=== PATIENT | male | born 1980 | race Caucasian/White ===

== ENCOUNTER 2024-05-09 09:21 | Inpatient (IN) | payer SELFPAY ==
[~2024-05-09] VITALS: Ht 170.2 cm; Wt 72.6 kg
[2024-05-09] MEDS: KETOROLAC 30MG/ML VIAL IV STA (09:48)
[2024-05-09] MEDS: ONDANSETRON HCL 4MG/2ML INJ IV STA (09:48)
[2024-05-09] MEDS: SODIUM CHLORIDE 0.9% 1,000 ML IV ONE (09:48)
[2024-05-09 09:56] LABS: BASOPHILS % 0.6 % (0.0-2.0); EOSINOPHILS % 0.4 % (0.0-5.0); HEMATOCRIT. 38.7 % (42.0-52.0); LYMPHOCYTES % 12.6 % (20.0-50.0); MEAN CORPUSCULAR HEMOGLOBIN 30.5 pg (28.0-32.0); MEAN CORPUSCULAR HGB CONC 33.7 g/dL (31.0-37.0); MEAN CORPUSCULAR VOLUME 90.4 fL (80.0-94.0); MEAN PLATELET VOLUME 8.9 fl (7.4-10.4); MONOCYTES % 5.1 % (2.0-8.0); NEUTROPHILS % 81.3 % (40.0-76.0); PLATELET 122 x1000/uL (130-400); RED BLOOD CELL COUNT 4.28 mill/uL (4.7-6.1); RED CELL DISTRIBUTION WIDTH 14.1 % (11.6-14.6); WHITE BLOOD COUNT 8.9 x1000/uL (4.5-11.0)
[2024-05-09 10:11] LABS: CHLORIDE 103 mEq/L (98-107); POTASSIUM 3.8 mEq/L (3.5-5.1); SODIUM 140 mEq/L (136-145)
[2024-05-09 10:16] LABS: CALCIUM 9.9 mg/dL (8.7-10.4)
[2024-05-09 10:17] LABS: CARBON DIOXIDE 28 mEq/L (21-32)
[2024-05-09 10:22] LABS: CREATININE 0.8 mg/dL (0.6-1.3); GLUCOSE 161 mg/dL (70-105); UREA NITROGEN BLOOD 11 mg/dL (9-23)
[2024-05-09 10:33] LABS: TROPONIN I HIGH SENSITIVITY < 4 ng/L (3.0-53)
[2024-05-09] MEDS ORDERED: CLONIDINE 0.1MG TABLET PO PRN (11:45)
[2024-05-09] MEDS ORDERED: DOCUSATE SODIUM 100MG CAPSULE PO PRN (11:45)
[2024-05-09] MEDS ORDERED: ONDANSETRON HCL 4MG/2ML INJ IV PRN (11:45)
[2024-05-09] MEDS ORDERED: ACETAMINOPHEN 325MG TABLET PO PRN ×2 (11:45)
[2024-05-09] MEDS ORDERED: GUAIFENESIN 200MG/10ML SUGAR FREE UDC PO PRN (11:45)
[2024-05-09] MEDS ORDERED: IPRATROPIUM/ALBUTEROL 0.5-3(2.5)MG/3ML NEB HHN PRN (11:45)
[2024-05-09] MEDS ORDERED: DEXTROSE 50% WATER 50ML SYRINGE IV PRN (12:30)
[2024-05-09] MEDS ORDERED: LORAZEPAM 2MG/ML INJ IV PRN ×2 (12:45→21:30)
[2024-05-09] MEDS: BLOOD SUGAR DIAGNOSTIC STRIP TEST SCH (13:00)
[2024-05-09] MEDS: INSULIN LISPRO 100 UNITS/ML SUBCUT SCH (13:20)
[2024-05-09 13:25] VITALS: BP 124/82; PULSE 78; RESP 18; TEMP 37.1
[2024-05-09] MEDS: MVI, ADULT NO.1 10 ML, FOLIC ACID 1 MG, THIAMINE HCL 100 MG in SODIUM CHLORIDE 0.9% 1,0... IV ONE (14:00)
[2024-05-09 14:48] LABS: BILIRUBIN DIRECT 0.2 mg/dL (<=3.0); BILIRUBIN TOTAL 0.6 mg/dL (0.1-1.0); PHOSPHORUS 3.4 mg/dL (2.5-4.9)
[2024-05-09] MEDS ORDERED: KETOROLAC 15MG/ML VIAL IV PRN (18:45)
[2024-05-09 18:49] LABS: AMMONIA 27 uMol/L (<32)
[2024-05-09 20:00] VITALS: BP 145/77; PULSE 74; RESP 15; TEMP 36.6; O2SAT 96
[2024-05-09] MEDS: MAGNESIUM 2 G PREMIX 50 ML IV NR (21:03)
[2024-05-09] MEDS: SUCRALFATE 1G TABLET PO SCH (21:04)
[2024-05-09] MEDS: PANTOPRAZOLE 40MG DR TABLET PO SCH (21:04)
[2024-05-09] MEDS ORDERED: DEXT 5%/0.45% NACL 1000ML 1,000 ML IV SCH (22:00)
[2024-05-10] VITALS: BP 132/68; PULSE 65; RESP 18; TEMP 36.5; O2SAT 98
[2024-05-10 04:00] VITALS: BP 133/69; PULSE 63; RESP 18; TEMP 36.3; O2SAT 98
[2024-05-10 06:18] LABS: PROTHROMBIN TIME 11.6 sec (9.6-11.0)
[2024-05-10 06:41] LABS: CHLORIDE 107 mEq/L (98-107); POTASSIUM 3.8 mEq/L (3.5-5.1); SODIUM 142 mEq/L (136-145)
[2024-05-10 06:43] LABS: CALCIUM 9.1 mg/dL (8.7-10.4); CARBON DIOXIDE 27 mEq/L (21-32)
[2024-05-10 06:46] LABS: TRIGLYCERIDE 85 mg/dL (0-150)
[2024-05-10 06:48] LABS: CREATININE 0.8 mg/dL (0.6-1.3); GLUCOSE 85 mg/dL (70-105); UREA NITROGEN BLOOD 11 mg/dL (9-23)
[2024-05-10 06:49] LABS: ALANINE AMINOTRANSFERASE 22 IU/L (10-49); LDL CHOLESTEROL 98 mg/dL (5-100)
[2024-05-10 06:50] LABS: ALBUMIN 3.7 g/dL (3.2-4.8); ASPARTATE AMINOTRANSFERASE 24 IU/L (<34); BILIRUBIN DIRECT 0.3 mg/dL (<=3.0); CHOLESTEROL 145 mg/dL (<200); HDL CHOLESTEROL 34 mg/dL (>55); PROTEIN TOTAL 6.5 g/dL (6.0-8.3)
[2024-05-10 06:59] LABS: HEPATITIS B SURFACE ANTIGEN NEGATIVE (Negative)
[2024-05-10 07:20] LABS: HEPATITIS A AB IGM NEGATIVE (Negative)
[2024-05-10 07:21] LABS: HEPATITIS B CORE AB IGM NEGATIVE (Negative); HEPATITIS C AB NON REACTIVE (Neg) (Negative)
[2024-05-10 07:28] LABS: BASOPHILS % 1.1 % (0.0-2.0); EOSINOPHILS % 1.8 % (0.0-5.0); HEMOGLOBIN. 12.9 g/dL (14.0-18.0); LYMPHOCYTES % 24.8 % (20.0-50.0); MEAN CORPUSCULAR HEMOGLOBIN 31.5 pg (28.0-32.0); MEAN CORPUSCULAR HGB CONC 34.7 g/dL (31.0-37.0); MEAN CORPUSCULAR VOLUME 90.8 fL (80.0-94.0); MEAN PLATELET VOLUME 9.9 fl (7.4-10.4); MONOCYTES % 7.7 % (2.0-8.0); NEUTROPHILS % 64.6 % (40.0-76.0); PLATELET 119 x1000/uL (130-400); RED BLOOD CELL COUNT 4.08 mill/uL (4.7-6.1); RED CELL DISTRIBUTION WIDTH 13.6 % (11.6-14.6); WHITE BLOOD COUNT 7.2 x1000/uL (4.5-11.0)
[2024-05-10 08:00] VITALS: BP 150/81; PULSE 60; RESP 18; TEMP 35.9; O2SAT 100
[2024-05-10] MEDS: THIAMINE HCL 100MG TABLET PO SCH (08:14)
[2024-05-10] MEDS: FOLIC ACID 1MG TABLET PO SCH (08:14)
[2024-05-10] MEDS ORDERED: PANTOPRAZOLE SODIUM 40 MG/VIAL IV SCH (09:00)
[2024-05-10 12:00] VITALS: BP 131/82; PULSE 65; RESP 18; TEMP 36.3; O2SAT 100
[2024-05-10 16:00] VITALS: BP 137/76; PULSE 64; RESP 19; TEMP 36.2; O2SAT 100
[2024-05-11 04:00] VITALS: BP 148/75; PULSE 64; RESP 18; TEMP 36.2; O2SAT 98
[2024-05-11 08:00] VITALS: BP 128/80; PULSE 72; RESP 18; TEMP 36.7; O2SAT 100
[2024-05-11 09:36] VITALS: BP 128/80; PULSE 72; TEMP 98; O2SAT 100
== END 2024-05-11 11:46 | disposition home or self-care (01) | DRG 241 ==
LOC: ER 09:21 → 7EST 11:20 → EDBEDREQ 11:25 → EDBEDREQSVC 11:25
PROVIDERS: ADMIT Internal Medicine; ATTEND Internal Medicine
DX: K29.71 Gastritis, unspecified, with bleeding (principal); D64.9 Anemia, unspecified; F10.10 Alcohol abuse, uncomplicated; E11.65 Type 2 diabetes mellitus with hyperglycemia; F17.210 Nicotine dependence, cigarettes, uncomplicated; K21.9 Gastro-esophageal reflux disease without esophagitis; F41.0 Panic disorder [episodic paroxysmal anxiety]; R16.1 Splenomegaly, not elsewhere classified; Y90.9 Presence of alcohol in blood, level not specified; I51.7 Cardiomegaly; Z59.00 Homelessness unspecified; Z90.01 Acquired absence of eye; Y99.8 Other external cause status
CPT/HCPCS: 36415; 71045; 76700; 80048; 80061; 80076; 82140; 82247; 82248; 82962; 83036; 83605; 83735; 83880; 84100; 84484; 85025; 85044; 86705; 86709; 87340; 93970; 99285; A4606; J1885; J2405; J3411; J3475; J3490; J7030